=== PATIENT | female | born 1950 ===

== ENCOUNTER 2016-12-17 06:09 | Day surgery (SDC) | payer MEDICARE ==
[2016-12-10 12:16] VITALS: BMI 28.6
[2016-12-17] MEDS ORDERED: Lidocaine 1% Inj (20ml) ONE (07:57)
[2016-12-17] MEDS ORDERED: Bacitracin Ointment 30 GM TUBE ONE (07:57)
[2016-12-17] MEDS ORDERED: Phenylephrine 10 mg/ml Inj ONE (09:32)
[2016-12-17] MEDS ORDERED: Dexamethasone 4 mg/1 ml ONE (09:34)
[2016-12-17] MEDS ORDERED: Propofol 10 mg/ml Inj (20 ML) ONE (10:04)
[2016-12-17] MEDS ORDERED: Lactated Ringer's 1,000 ML IV ONE ×2 (11:30→13:25)
[2016-12-17] MEDS ORDERED: Succinylcholine 200 mg/10 ml Inj IV ONE (11:37)
[2016-12-17] MEDS ORDERED: Lidocaine 4% (Laryng-O-Jet) Kit MM ONE (11:50)
[2016-12-17] MEDS ORDERED: Lidocaine 1% Inj (20ml) IJ ONE (12:35)
[2016-12-17] MEDS ORDERED: MethylPREDNISolone Depo 40 mg/ml Inj ONE (13:09)
[2016-12-17] MEDS ORDERED: Bupivacaine 0.5% Inj(30mL) ONE (13:09)
[2016-12-17] MEDS ORDERED: MethylPREDNISolone Depo 40 mg/ml Inj IM ONE ×2 (13:15)
[2016-12-17] MEDS ORDERED: Bacitracin OINT 15GM TOP ONE (13:15)
[2016-12-17] MEDS ORDERED: Bupivacaine 0.5% Inj(30mL) IJ ONE (13:15)
[2016-12-17] MEDS ORDERED: Lactated Ringer's 1,000 ML IV SCH (13:34)
[2016-12-17] MEDS ORDERED: HYDROmorphone 0.5 mg/0.5 ml ISec IVP PRN (13:34)
[2016-12-17 17:59] VITALS: RESP 18
[2016-12-17 18:26] VITALS: BP 134/52; PULSE 70; TEMP 97.8; O2SAT 97
--- NOTE | 2016-12-17 18:44 | PCM.OP ---
Operative Report - Operative Report Date of Surgery/Procedure: 12/17/16 Time of Surgery/Procedure: 12:40 (timew in room/anaesthesia indcution time 11:30 ) Surgeon: Lam Impact Hammer Operator: ANTHONY Miller Anesthesia/Sedation: GETA- DR Chris Long Pre-Operative Diagnosis: osteoathritis Right knee. 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 tear medial meniscus/tear lateral meniscus. teicompartmental synovitis Indication for Surgery: Pain and restricted ROM R knee, refractory to conservative approach Operative Findings: as above Procedure/Operation Description: athroscopic microfracture- femorsal trochlea/ medial femoral condyle. arthroscopic partial medial/lateral meniscectomy. arthrosacopic tricompartmental synovectomy. intraarticular injection. Operative procedure: After having obtained informed consent, after the satisfacoty induction of GETA, after having identified side, site and procedure in a critical pause/timeout, the pt identified as Ama Barillas, in the supine position with all bony prominences well padded, the Rigth lower ext is prepped and free draped in the ususal fashion for lower ext (knee) surgery. The tourniquet had been applied but is not inflated; the knee torres is employed as well. The Lower ext is exsanguinated using a six inch Esmarch bandage. The tourniquet which had been applied is inflated to 350 mm Hg. the joint is insufgflated with 10 cc of 1p cent lidocaine without epinephrine. Using a #11 blade, folowed by spreading, by inroduction of th4 blunt trocar, the arthroscope is introduced. There is found angela be a marked synovitis. Triangulation is accomplished, using a # 18 gauge spinal needle, followed by # 11 blade followed by spreading, followed by introduction of the blunt trocar. A careful partial tricompartmental synovectomy is accomplished both to improve visualization and to obliterate inflammatory tissue. There is found to be a tear of the inner free edge of the medial meniscus. With the arthroscope anteromedially, the medial meniscal tear is visualized. The inner free edge of the medial meniscus is debride, using a straight biting basket forceps, and right biting basker forceps. The inner free edge is debrided and the tear is smoorthed using th e selene serfas wand. With the arthroscope anterolaterally , the inner free edge of kartik lateral meniscus is probed, and there is found to be a tear of the inner free edge of the lateral meniscus. With the arthroscope anterolaterall, and the knee in figure 4 positon, a partial lateral meniscectomy is accomplished, using the left biting basket forceps and the up biting basket forceps, a partial lateral meniscectomy is accomplished. The inner free edge is smoothed using the selene serfas wand. Lateral meniscectomy having been accomplished, the anterior crucoiate ligament is found to be intact. There is found to be full thickness chondral damage oif the medial femoral condyle and the femoral trochlea. Mechanical chondroplasty is accomplished with the arthroscopoic shaver. Full thickness chondral defects are found to be in evidence. A Microfracture technique is accomplished using the arthroscopic pick in a honey comb lattice. Free fragments are removed with the 3.4 mm Pay[employer]es suction punch. Patellofemoral joint is found to be modersately arthritic/ Partial tericompartmental synovectomy is completetd. Bleeding points are controlled with the selene serfas. Wound is irrigate, closure with interrupted vicryl berto nylon. Teja Pichardo compression dressing and knee immobilizer is applied. End op note on pt Ama Valladares Estimated Blood Loss: 5cc Blood Replaced: 0 cc Sponge/Instrument Count: correct Drains: none Complications: none Specimen: cartilage/synvoium/bone Discharge & Condition: stable
== END 2016-12-17 18:54 | disposition home or self-care (01) ==
LOC: H.OPSURG 06:09
PROVIDERS: ATTEND Orthopaedic Surgery
DX: S83.241A Other tear of medial meniscus, current injury, right knee, initial encounter (principal); J45.909 Unspecified asthma, uncomplicated; E78.5 Hyperlipidemia, unspecified; M19.90 Unspecified osteoarthritis, unspecified site; Z86.73 Personal history of transient ischemic attack (TIA), and cerebral infarction without residual deficits
CPT/HCPCS: 29876; 29879; 29880; 97116; 97161; G8978; G8979; G8980; J0171; J0330; J0690; J1030; J1100; J1885; J2370; J2405; J2704; J2765; J3010; J7030; J7120